=== PATIENT | female | born 1970 | race Caucasian/White ===

== ENCOUNTER 2018-06-09 14:11 | Emergency (ER) | payer OTHER ==
[~2018-06-09] VITALS: Ht 175.3 cm; Wt 76.7 kg
[2018-06-09] MEDS ORDERED: NORVASC5 MG (14:49)
[2018-06-09] MEDS ORDERED: CIPRO500 MG PO (18:40)
== END 2018-06-09 20:11 | disposition home or self-care (01) ==
LOC: ER 14:11
DX: N39.0 Urinary tract infection, site not specified (principal)